=== PATIENT | female | born 1940 | race Caucasian/White ===

== ENCOUNTER 2016-11-03 00:54 | Emergency (ER) | payer MEDICARE ==
[2016-11-03 01:12] VITALS: BP 188/137; PULSE 66; RESP 16; O2SAT 97
--- NOTE | 2016-11-03 01:12 | ED.REPORT ---
HPI-Trauma Minor / Fall Date of Service Nov 03, 2016 ED Provider: Ino Eric MD Patient is a 76 year old female with a hx of dementia who presents to the ED via EMS from [facility] following an unwitnessed ground level fall earlier today. Due to mental status, she is unable to give history and has repetitive echolalia. No injury was noted. Pt's nighttime Seroquel was recently doubled. Nursing Notes Stated Complaint: GROUND LEVEL FALL Chief Complaint: Multiple Trauma/Fall Nursing Notes Reviewed: Yes General Time Seen by MD: 01:12 Chief Complaint Unknown reason for fall Hx Obtained From: EMS Arrived By: Ambulance Onset Occurred: Just prior to arrival Symptom Duration: Since onset Caused by: Fall on ground Recent Healthcare: No recent doctor visit, No recent hospitalization Similar Sx Previous: No Past Medical History Past Medical History Reports: Dementia Past Surgical History unknown Smoking History Unknown if Ever Smoker Review of Systems Unable to Obtain ROS Mental status Physical Exam Initial Vital Signs Vital Signs (First) Date Time Temp Pulse Resp B/P Pulse Ox O2 Delivery O2 Flow Rate FiO2 11/03/16 01:12 36.1 66 16 188/137 97 Room Air Initial VS: Reviewed, Vital signs abnormal Head / Eyes: Atraumatic, Normocephalic, PERRL ENT: Mucous membranes moist, Conjunctiva normal, No scleral icterus Respiratory: Breath sounds normal, Clear to auscultation, No respiratory distress Cardiovascular: Regular rate & rhythm, Heart sounds normal, Intact distal pulses Abdomen / GI: Soft, Non-tender, No guarding, No rebound, No distention Back: No CVA tenderness Extremities: Vascular intact, Neuro intact, No swelling, No tenderness Skin: Warm, Dry, No cyanosis General/Constitutional: Awake, Well appearing, Well developed, Well hydrated repetitive echolalia Neck: Atraumatic, Supple, No meningismus, Full range of motion, No adenopathy, No swelling, Non-tender Re-Eval/Medical Decision Med Decision/Clinical Course 76-year-old female with gait instability likely worsening due to her Seroquel increase. No evidence of trauma found on physical exam, no indication for imaging. She will be discharged back to her [facility] center Counseled Regarding: Diagnosis, Lab results, Need for follow-up, When/why to return to ED Discharge & Departure Impression: Primary Impression: Gait instability Disposition: Home Discharge Condition All VS Reviewed: Yes Condition: No Change Patient Instructions: Fall Prevention for Older Adults (GEN) Additional Instructions: Completely normal physical examination with the exception of her stable dementia. I find no evidence of trauma from her fall. Her gait instability is most likely due to her increasing dose of Seroquel. Recommend returning to her previous dose and reevaluate. Referrals: Stuart Madden MD (PCP) Scribe Attestation Portions of this note were transcribed by Fco Helms. I, Dr. Eric personally performed the history, physical exam and medical decision-making; I reviewed and confirmed the accuracy of the information in the transcribed note. Signed by: Lissy Vásquez, 11/03/16 0150 copies to: Stuart Madden MD, Howard L MD Nov 03, 2016 01:12 FCO HELMS Nov 03, 2016 01:29
== END 2016-11-03 01:55 | disposition home or self-care (01) ==
LOC: EDBD 00:54 → SED 00:54
DX: R26.89 Other abnormalities of gait and mobility (principal); W18.39XA Other fall on same level, initial encounter; Y93.89 Activity, other specified; Y92.89 Other specified places as the place of occurrence of the external cause; Y99.8 Other external cause status; R41.82 Altered mental status, unspecified; F03.90 Unspecified dementia, unspecified severity, without behavioral disturbance, psychotic disturbance, mood disturbance, and anxiety

== ENCOUNTER 2017-06-18 20:01 | Emergency (ER) | payer MEDICARE ==
[2017-06-18 20:07] VITALS: BP 126/85; PULSE 92; RESP 16; O2SAT 96
--- NOTE | 2017-06-18 20:21 | ED.REPORT ---
HPI-Head Prob / Injury Date of Service Jun 18, 2017 ED Provider: Dr. Garcia The pt is a 77 y/o female with a hx of dementia, DM, HTN, and hyperlipidemia who is brought to the ED from [facility] by her complaining of a head injury after a ground level fall in the morning today. As per the toll bridge operator, the pt lost her balance and fell. She bled a little bit. It is not clear if she lost consciousness. As per the pt's , she is at her baseline neurologically. She has not been vomiting. The pt is not on any blood thinners. The pt was seen at urgent care yesterday for agitation, mild abdominal pain, urinary retention, and lack of sleep. She was prescribed alprazolam 0.5mg. Nursing Notes Stated Complaint: FLOOR FALL AT [facility] Chief Complaint: Head, Face, Neck Trauma Nursing Notes Reviewed: Yes Allergies: Coded Allergies: nitrofurantoin (Verified Allergy, Intermediate, 06/18/17) General Time Seen by Provider: 20:23 Chief Complaint Abrasion Hx Obtained From: Spouse Arrived By: Walk-in Onset Occurred: 9 - 12 hours ago Symptom Duration: Since onset Past Medical History Past Medical History Osteoarthritis PVCsAsthma HTN DM 1st degree AV block Hyperlipidemia Polmyalgia rheumatica Reports: Dementia Past Surgical History unknown Smoking History Unknown if Ever Smoker Social History Other Social History: Review of Systems Reports: abrasion to the back of the head Unable to Obtain ROS Mental status GI: Denies: Rectal pain Complete sys rev & neg: except as marked. Physical Exam Initial Vital Signs Vital Signs (First) Date Time Temp Pulse Resp B/P Pulse Ox O2 Delivery O2 Flow Rate FiO2 06/18/17 20:07 36.8 92 16 126/85 96 Room Air Initial VS: Reviewed General/Constitutional: Awake, Alert Alertness: Positive: Confused, Disoriented Demented with intermittent agitation. reports this is her baseline, and we will likely need sedation for CT and blood draws. Head / Eyes: Atraumatic, Normocephalic Small abrasion to the right occiput. ENT: Atraumatic, Airway patent, Mucous membranes moist, Pharynx NL, No facial swelling Neck: Atraumatic, Supple, Full range of motion Neurologic: No motor deficits, No sensory deficits Respiratory / Chest: Atraumatic, Breath sounds NL, Breath sounds = bilat, No respiratory distress, No rales, No rhonchi, No wheezing Cardiovascular: Heart rate NL, Regular rhythm, Heart sounds NL, No gallop, No murmurs, No rubs Abdomen: Atraumatic, Soft, Non-tender, No guarding, No rebound, BS normoactive Interpretation & Diagnostics Lab Results Interpretation Result Diagram: 06/18/17215406/18/172154 Test 06/18/17 21:55 06/18/17 22:35 White Blood Count 5.7th/mm3 (3.8-10.1) Red Blood Count 4.42mil/mm3 (3.90-5.20) Hemoglobin 12.9g/dL (12.0-15.6) Hematocrit 39.3% (35.0-46.0) Mean Corpuscular Volume 88.9fL (81-100) Mean Corpuscular Hemoglobin 29.2pg (27.0-35.0) Mean Corpuscular Hemoglobin Concent 32.8% (32.0-37.0) Red Cell Distribution Width 13.3% (12.3-15.4) Platelet Count 212bil/L (150-400) Neutrophils (%) (Auto) 68.8% (40-74) Lymphocytes (%) (Auto) 17.7% (14-46) Monocytes (%) (Auto) 9.8% (4-12) Eosinophils (%) (Auto) 2.6% (0-5) Basophils (%) (Auto) 0.9% (0-3) Sodium Level 141mEq/L (134-144) Potassium Level 5.6mEq/L (3.5-5.2) Chloride Level 104mEq/L (97-108) Carbon Dioxide Level 25mmol/L (18-29) Blood Urea Nitrogen 19mg/dL (8-27) Creatinine 0.59mg/dL (0.57-1.00) Estimat Glomerular Filtration Rate 141mL/min (>59) Glucose Level 100mg/dL (60-99) Calcium Level 9.8mg/dL (8.5-10.1) Total Bilirubin 0.4mg/dL (0.0-1.2) Aspartate Amino Transf (AST/SGOT) 20U/L (0-50) Alanine Aminotransferase (ALT/SGPT) 10U/L (0-32) Alkaline Phosphatase 106U/L (25-165) Total Protein 7.1g/dL (6.4-8.4) Albumin 3.4g/dL (3.4-5.0) Hold Lu Top Tube Received (Received) Urine Color Yellow (YELLOW) Urine Appearance Cloudy (CLEAR,HAZY) Urine pH 7.0 (5.0-8.0) Urine Specific Hope 1.020 (1.003-1.035) Urine Protein Tracemg/dL (NEG,TRACE) Urine Glucose (UA) Negativemg/dL (NEGATIVE) Urine Ketones Negativemg/dL (NEGATIVE) Urine Occult Blood Trace (NEGATIVE) Urine Nitrite Negative (NEGATIVE) Urine Bilirubin Negative (NEGATIVE) Urine Urobilinogen Normalmg/dL (NORMAL) Urine Leukocyte Esterase Large (NEGATIVE) Urine RBC 3-10/hpf (0-2) Urine WBC Packed/hpf (0-5) Urine Epithelial Cells Occasional/hpf (NONE-MOD) Urine Crystals None seen (NONE SEEN) Urine Bacteria Moderate/hpf (NONE-FEW) Urine Hyaline Casts None/lpf (NONE) Urine Granular Casts None seen (NONE SEEN) Urine Waxy Casts None seen (NONE SEEN) Urine Red Blood Cell Casts None seen (NONE SEEN) Urine White Blood Cell Casts None seen (NONE SEEN) Urine Mucus None seen (None Seen) Urine Trichomonas None seen (NONE SEEN) Urine Yeast None (NONE SEEN) Urinalysis Comment None Urine Culture Reflexed Indicated ECG Interpretation ECG Interpretation: Normal sinus rhythm. Rate 93. No peaked T waves Time: 00:07 Interpreted by: ED physician CT Head Interpretation No acute intracranial emorrhage or calvarial fractures. Senescent changes. Signed by Dr. Umer Rausch 06/18/17 23:31 Re-Eval/Medical Decision Med Decision/Clinical Course 77-year-old female with advanced dementia presents after a ground-level fall and minimal head injury. She is not anticoagulated. Her mental status is her baseline confusion. There is a report of a fever documented at the dementia care facility, here she is afebrile. Brain and cervical spine imaging did not show acute injury. Basic evaluation for febrile illness shows urinary tract infection. She was given lorazepam and Haldol sufficient to facilitate evaluation. She was noted as an incidental finding to have a potassium of 5.6 with normal renal functions. She is not on any medications that should cause potassium retention. ECG is without hyperkalemic changes, I do not believe her potassium 5.6 is clinically significant issue today. We will start her on cephalexin and return her to her previous care setting. is aware of findings and in agreement. Source of Hx: Old records Re-Evaluation/Progress : Time of Eval: 23:32 Re-Evaluation/Progress Note: Rechecked pt. Discussed lab results including high potassium, CT results, diagnosis and plan to discharge after ECG with the pt's . He understands and agrees with the plan. All questions answered. F/U and RTER given. Counseled Regarding: Diagnosis, Lab results, Need for follow-up, When/why to return to ED Discharge & Departure Primary Impression: UTI (urinary tract infection) Urinary tract infection type: acute cystitis Hematuria presence: without hematuria Qualified Code: N30.00 - Acute cystitis without hematuria Additional Impressions: Fall from ground level Scalp abrasion Encounter type: initial encounter Qualified Code: S00.01XA - Abrasion of scalp, initial encounter Disposition: Home All VS Reviewed: Yes Condition: Stable Additional Instructions: Thank you for entrusting us with Riri's care today. Her CT results were reassuring. Her lab results indicate a urinary tract infection. Give her antibiotics as prescribed. Her potassium is also slightly high but not concerning. encourage fluid intake. continue previous home medications Return to the emergency department in case of vomiting, change in mental status or other new or worsening symptoms. Referrals: Stuart Madden MD (PCP) Scribe Attestation Portions of this note were transcribed by Therese Trent. I,, personally performed the history,physical exam and medical decision-making;I reviewed and confirmed the accuracy of the information in the transcribed note. Signed by Lissy Low. 06/18/17 copies to: Stuart Madden MD, Donald L MD Jun 18, 2017 20:21 Therese Trent Jun 18, 2017 20:26
[2017-06-18] MEDS ORDERED: Haloperidol 5 mg/mL Inj IM ONE (21:30)
[2017-06-18 22:13] LABS: BASOPHILS % (AUTO) 0.9 % (0-3); EOSINOPHILS % (AUTO) 2.6 % (0-5); MONOCYTES % (AUTO) 9.8 % (4-12); Mean Corpuscular Hemoglobin 29.2 pg (27.0-35.0); Mean Corpuscular Volume 88.9 fL (81-100); NEUTROPHILS % (AUTO) 68.8 % (40-74); Platelet Count 212 bil/L (150-400)
[2017-06-18 22:44] LABS: APPEARANCE,URINE CLOUDY (CLEAR,HAZY); COLOR,URINE YELLOW (YELLOW); OCCULT BLOOD,URINE TRACE (NEGATIVE); UROBILINOGEN,URINE NORMAL (NORMAL)
[2017-06-18 23:48] VITALS: BP 145/71; PULSE 70; RESP 18; O2SAT 96
[2017-06-19 00:11] VITALS: BP 145/71; PULSE 70; RESP 18; O2SAT 96
--- NOTE | 2017-06-19 07:59 | DRSVH ---
PROCEDURE: CT CERVICAL SPINE WITHOUT CONTRAST ([id number]) INDICATIONS: fall head injury TECHNIQUE: Noncontrast 3 mm thick sections acquired from the skull base to the T4 level. Sagittal and coronal r eformats were then constructed. For radiation dose reduction, the following was used: automated exp osure control, adjustment of mA and/or kV according to patient size. COMPARISON: None. FINDINGS: Image quality: There are motion artifacts. Bones: No fractures or dislocations. Visualized superior ribs are intact. Degenerative changes not ed in cervical spine. Soft tissues: Prevertebral soft tissues are normal in thickness. No paravertebral hematomas. No ap ical pneumothoraces. IMPRESSION: No definitive fracture or dislocation. Motion artifacts limits the sensitivity of the test. No significant discrepancy with the shift commander radiology preliminary report. Dictated by: Ni Crowley M.D. on 06/19/2017 at 7:53 Approved by: Ni Crowley M.D. on 06/19/2017 at 7:56
--- NOTE | 2017-06-19 08:02 | DRSVH ---
PROCEDURE: CT BRAIN WITHOUT CONTRAST ([id number]) INDICATIONS: fall head injury TECHNIQUE: Noncontrast 4.5 mm thick angled axial sections acquired from the foramen magnum to the vertex, with c oronal reformats. COMPARISON: [facility], , BRAIN WITHOUT CONTRAST, 10/17/2013, 11:02. FINDINGS: Image quality: Excellent. CSF spaces: Basal cisterns are patent. No extra-axial fluid collections. The ventricles are dilate d but symmetric in size and shape. Brain: No intracranial bleeds or masses. There is moderate cerebral volume loss for age, with resul tant ventricular and sulcal prominence. There are mild periventricular and deep white matter chronic small vessel ischemic changes. There is intracranial internal carotid artery atherosclerosis. Skull and face: Calvarium and visualized facial bones appear intact, without suspicious lesions. Sinuses: Visualized sinuses and mastoids are clear. IMPRESSION: 1. No acute intracranial abnormalities. 2. Cerebral volume loss and chronic microvascular ischemic changes. 3. Ventricular dilation may be secondary to central atrophy or normal pressure hydrocephalus. Recomme nd clinical correlation. If clinically indicated, radionuclide cisternography may be helpful. Dictated by: Ni Crowley M.D. on 06/19/2017 at 7:57 Approved by: Ni Crowley M.D. on 06/19/2017 at 8:00
[2017-06-19] MEDS ORDERED: _Cephalexin 500 mg Capsule PO SCH (08:30)
== END 2017-06-19 00:12 | disposition home or self-care (01) ==
LOC: SED 20:01
DX: S00.01XA Abrasion of scalp, initial encounter (principal); N30.00 Acute cystitis without hematuria; W18.39XA Other fall on same level, initial encounter; Y93.89 Activity, other specified; Y92.89 Other specified places as the place of occurrence of the external cause; Y99.8 Other external cause status; I11.9 Hypertensive heart disease without heart failure; E11.59 Type 2 diabetes mellitus with other circulatory complications; I44.0 Atrioventricular block, first degree; J45.909 Unspecified asthma, uncomplicated; F03.90 Unspecified dementia, unspecified severity, without behavioral disturbance, psychotic disturbance, mood disturbance, and anxiety; E78.5 Hyperlipidemia, unspecified; B95.2 Enterococcus as the cause of diseases classified elsewhere; Z88.8 Allergy status to other drugs, medicaments and biological substances
CPT/HCPCS: 36415; 70450; 72125; 80053; 81000; 85025; 87086; 87088; 87186; 93005; 96372; 99285; J1200; J1630; J2060